=== PATIENT | female | born 1985 | race Caucasian/White ===

== ENCOUNTER → 2024-07-03 | Outpatient (CLI) | payer BC, SELFPAY ==
--- NOTE | 2024-07-03 09:27 | XR_ITS ---
Examination: Pelvic ultrasound, transabdominal, complete Technique: Transabdominal ultrasound of the pelvis performed using grayscale imaging Date and time of exam: July 03, 2024 1024 hours INDICATIONS: Abdominal bloating pelvic bloating and distention this month FINDINGS: Uterus 10.7 x 4.9 x 6.2 cm Endometrial stripe 1.2 cm No uterine mass or intrauterine gestation Right ovary 4.1 x 4.2 x 3.7 cm arterial flow multiple follicles Left ovary 3.6 x 1.9 x 2.7 cm arterial flow multiple follicles Moderate fluid or ascites in the pelvis IMPRESSION: Moderate fluid or ascites in the pelvis
--- NOTE | 2024-07-03 09:27 | XR_ITS ---
Examination: Abdomen sonogram, complete Date and time of exam: July 03, 2024 1011 hours INDICATIONS: Abdominal pain and bloating months. Technique: Multiple real-time grayscale transabdominal sonographic images of the abdomen have been obtained. Findings: Negative for gallstones Gallbladder wall is thickened 0.5 cm with edema Common bile duct 0.2 cm Pancreatic head 2.4 cm Aorta not enlarged Liver 13.7 cm irregular contour fatty infiltration no focal liver lesions Mild ascites Mild right pleural fluid Normal hepatopedal portal venous oh Patent IVC Right kidney 11.3 x 4.5 x 5.9 cm renal cortex 2.6 cm Left kidney 13.6 x 6.0 x 6.1 cm renal cortex 2.4 cm Moderate renal parenchymal scar formation No hydronephrosis Spleen 11.4 cm IMPRESSION: Negative for cholelithiasis Gallbladder wall is thickened with fluid however the patient has ascites Primary or pelvis other disease versus cirrhosis Moderate bilateral renal parenchymal scar
--- NOTE | 2024-07-03 09:27 | XR_ITS ---
Examination: Transvaginal ultrasound of the pelvis, complete Technique: Transvaginal sonographic images pelvis performed using ramos scale imaging Exam date and time: July 03, 2024 1032 hours INDICATIONS: Abdominal pelvic pain and distention several weeks. FINDINGS: Uterus 10.4 x 4.2 x 4.1 cm Endometrial stripe 12 mm No uterine mass or intrauterine gestation Right ovary 3.1 x 3.0 x 2.4 cm arterial flow Left ovary obscured by bowel gas IMPRESSION: No uterine mass or intrauterine gestation
== END | disposition home or self-care (01) ==
LOC: CDIM 09:17
PROVIDERS: Referring Provider Physician Assistant; Visit Provider Physician Assistant
DX: R18.8 Other ascites (principal); K82.8 Other specified diseases of gallbladder; N28.89 Other specified disorders of kidney and ureter
CPT/HCPCS: 76700; 76830; 76856